=== PATIENT | male | born 1990 | race Native Hawaiian/Other Pacific Islander ===

== ENCOUNTER 2017-02-19 17:00 | Emergency (ER) | payer OTHER ==
[2017-02-19 17:17] VITALS: RESP 16
[2017-02-19 17:41] VITALS: BP 124/77; PULSE 88; TEMP 98; O2SAT 99
--- NOTE | 2017-02-19 17:57 | ED PDOC ---
HPI: CCC, URI, Sore Throat Time Seen by Provider: 02/19/17 17:18 Chief Complaint (Nursing): ENT Problem Chief Complaint (Provider): ENT Problem History Per: Patient History/Exam Limitations: no limitations Onset/Duration Of Symptoms: Days (x2) Current Symptoms Are (Timing): Still Present Location Of Pain: Ear(s) (left) Additional Complaint(s): 26 year old male who presents to the emergency department with a complaint of left ear decreased hearing loss associated with echo sounds and nasal congestion ongoing for 2 days. Denied any ear pain, headaches, nausea, vomiting or throat pain. PMD: none provided Past Medical History Reviewed: Historical Data, Nursing Documentation, Vital Signs Vital Signs: Last Vital Signs Temp 98.0 F 02/19/17 17:40 Pulse 88 02/19/17 17:40 Resp 16 02/19/17 17:40 BP 124/77 02/19/17 17:40 Pulse Ox 99 02/19/17 17:40 - Surgical History Surgical History: No Surg Hx - Family History Family History: States: Unknown Family Hx - Social History Current smoker - smoking cessation education provided: No Ex-Smoker (has not smoked in the last 12 months): No Alcohol: None Drugs: Denies - Immunization History Hx Tetanus Toxoid Vaccination: No Hx Influenza Vaccination: No Hx Pneumococcal Vaccination: No - Home Medications Home Medications: Ambulatory Orders Medication Instructions Recorded Methylprednisolone [Medrol Dose 4 mg PO DAILY #21 mg 02/19/17 Pack (21 tabs)] Pseudoephedrine HCl [Sudafed] 1 - 2 tab PO Q8 PRN #30 tablet 02/19/17 - Allergies Allergies/Adverse Reactions: Allergies Allergy/AdvReac Type Severity Reaction Status Date / Time No Known Allergies Allergy Verified 02/19/17 17:14 Review of Systems ROS Statement: Except As Marked, All Systems Reviewed And Found Negative ENT: Positive for: Nose Congestion, Other (decreased left ear hearing loss with echo). Negative for: Ear Pain, Throat Pain Gastrointestinal: Negative for: Nausea, Vomiting Neurological: Negative for: Headache Physical Exam - Reviewed Nursing Documentation Reviewed: Yes Vital Signs Reviewed: Yes - Physical Exam Appears: Positive for: Well, Non-toxic, No Acute Distress Head Exam: Positive for: ATRAUMATIC, NORMAL INSPECTION, NORMOCEPHALIC ENT: Positive for: Normal ENT Inspection, TM Is/Are (clear bilaterally), Hearing Is (grossly intact). Negative for: Other (sinus pain or bilateral TM erythema/bulging) Neurologic/Psych: Positive for: Alert (x3), Oriented - ECG O2 Sat by Pulse Oximetry: 99 (RA) Pulse Ox Interpretation: Normal Medical Decision Making Medical Decision Making: Initial Impression: Hearing loss Time: 1744 --Upon provider evaluation, patient is medically stable and requires no further treatment in the ED at this time. Patient will be discharged home with Rx for Medrol Dose Pack and Sudafed. Counseling was provided and all questions were answered regarding diagnosis and need for follow up with ENT. There is agreement to discharge plan. Return if symptoms persist or worsen. Clinical Impression: Diminished hearing Scribe Attestation: Documented by Char Lozano, acting as a scribe for Arden Ordaz PA-C. Provider Scribe Attestation: All medical record entries made by the Scribe were at my direction and personally dictated by me. I have reviewed the chart and agree that the record accurately reflects my personal performance of the history, physical exam, medical decision making, and the department course for this patient. I have also personally directed, reviewed, and agree with the discharge instructions and disposition. Disposition - Clinical Impression Clinical Impression: Diminished hearing - Patient ED Disposition Is Patient to be Admitted: No Counseled Patient/Family Regarding: Diagnosis, Need For Followup, Rx Given - Disposition Referrals: [facility] [Outside] Fuad Patterson MD [Staff Provider] - Disposition: Routine/Home Disposition Time: 17:41 Condition: STABLE Additional Instructions: Follow up with Dr. Patterson, ENT, for further evaluation without fail. Prescriptions: Methylprednisolone [Medrol Dose Pack (21 tabs)] 4 mg PO DAILY #21 mg Pseudoephedrine HCl [Sudafed] 1 - 2 tab PO Q8 PRN #30 tablet PRN Reason: congestion Instructions: Hearing Loss (DC) Forms: [facility] (Angolan) Print Language: MACEDONIAN
== END 2017-02-19 18:55 | disposition home or self-care (01) ==
LOC: H.ER 17:00
DX: H91.92 Unspecified hearing loss, left ear (principal)